=== PATIENT | male | born 1990 | race Asian ===

== ENCOUNTER 2017-11-19 17:36 | Emergency (ER) | payer OTHER ==
[~2017-11-19] VITALS: Ht 175.3 cm; Wt 68.0 kg
--- NOTE | 2017-11-19 17:55 | NUR ---
BIB FAMILY, C/O FLU LIKE SYMPTOMS X 2 DAYS, NAD NOTED, VSS, RESP EVEN AND UNLABORED, PT PUT ON MONITOR. WAITING FOR MD JORDAN.
[2017-11-19] MEDS ORDERED: IBUPROFEN 600 MG TABLET PO ONE ×2 (17:59→18:00)
[2017-11-19] MEDS ORDERED: ACETAMINOPHEN ES 500 MG TABLET ONE (17:59)
[2017-11-19] MEDS ORDERED: ACETAMINOPHEN 325 MG TABLET PO ONE (18:00)
[2017-11-19 18:24] VITALS: BP 138/76
== END 2017-11-19 19:24 | disposition home or self-care (01) ==
LOC: ER 17:39
DX: R00.0 Tachycardia, unspecified (principal); J06.9 Acute upper respiratory infection, unspecified
CPT/HCPCS: 71045-TC; A4606; Z7610